=== PATIENT | female | born 1950 | race Caucasian/White ===

== ENCOUNTER 2019-06-27 07:11 | Inpatient (IN) | payer OTHER, BC ==
[2019-06-11 12:08] LABS: URINE BILIRUBIN NEGATIVE (Negative); URINE BLOOD 2+ (Negative); URINE CLARITY CLEAR; URINE COLOR YELLOW; URINE GLUCOSE-RANDOM* NEGATIVE (Negative); URINE KETONES NEGATIVE (Negative); URINE NITRITE-REFLEX NEGATIVE (Negative); URINE PROTEIN (DIPSTICK) NEGATIVE (Negative); URINE SPECIFIC GRAVITY 1.015 (1.005-1.035); URINE UROBILINOGEN 0.2 E.U./dl (0.2-1.0)
[2019-06-11 12:09] LABS: URINE LEUKOCYTES-REFLEX 1+ (Negative)
[2019-06-11 12:16] LABS: CASTS None Seen /LPF (None Seen); CRYSTALS None Seen /LPF (None Seen); MUCUS 0-3 Light strn/LPF (None Seen); SQUAMOUS >10 Many /LPF (0-3); URINE WBC-REFLEX 0-5 Rare /HPF (0-5)
[2019-06-11 12:17] LABS: BACTERIA-REFLEX 1-9 Few /HPF (None Seen); RENAL EPITHELIAL CELLS 0-3 Few /LPF (None Seen); TRANSITIONAL EPITHEL CELL 0-3 Few /LPF (None Seen)
[2019-06-11 12:48] LABS: HEMATOCRIT 40.8 % (37.0-47.0); HEMOGLOBIN 13.4 gm/dL (12.0-15.0); MCH 29.2 pg (26.0-34.0); MCHC 32.9 g/dL (28.0-37.0); MCV 88.8 fL (80.0-100.0); RBC 4.59 mil/uL (4.20-5.00); RDW 13.5 % (10.5-14.5); WBC 6.3 thou/uL (4.0-11.0)
[2019-06-11 12:57] LABS: CALCIUM 10.5 mg/dL (8.5-10.1); CREATININE 0.8 mg/dL (0.6-1.0); POTASSIUM 3.9 mmol/L (3.5-5.1)
[2019-06-11 13:04] LABS: PROTIME 10.3 Seconds (9.3-11.4)
--- NOTE | 2019-06-11 16:47 | EKG ---
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 : 1950 Requested By: Tawanda Montes Order Number: [id number] MD: William Oliveros Measurements Intervals [place] Rate: 70 P: 11 AK: 148 QRS: 53 QRSD: 106 T: 25 QT: 412 QTc: 445 Interpretive Statements Sinus rhythm Abnormal R-wave progression, early transition Baseline wander in lead(s) V5 No previous ECG available for comparison Electronically Signed On 06-11-2019 16:47:24 MARBLE HELPER by William Oliveros [email or web address] <ELECTRONICALLY SIGNED> By: William Oliveros MD, [facility] 06/11/19 1647 1220 1220 William Oliveros MD, FACC /EPI
[~2019-06-27] VITALS: Ht 152.4 cm; Wt 87.5 kg
[~2019-06-27 07:11] MED LIST: FOSAMAX 70 MG T70 MG PO; IRON325 M1 PO; MELOXICAM15 MG PO; NEURONTIN300 MG PO; OMEPRAZOLE 20 M20 M1 PO; SIMVASTATIN80 MG PO; TYLENOL EXTRA500 MG PO; ZESTORETIC 20-1 EAC3 PO; [UNRECOGNIZED DRUG - OTHER] PO
[2019-06-27 08:06] VITALS: BP 133/63
--- NOTE | 2019-06-27 18:05 | NUR ---
[age] YEAR OLD FEMALE ADMITTED TO [address] [place] [address] ROOM 445. PT ADMITTED FOR RIGHT TOTAL SHOULDER. PT ALERT AND ORIENTED TIMES FOUR. VSS, 97%RA. RIGHT ARM BRACE IN PLACE. PT DENIES PAIN/SOA AT THIS TIME. PT TOLERATES DINNER. PT UP TO BSC WITH ASSIST ONE. PT FAMILY AT BEDSIDE DURING ADMISSION ASSESSMENT.
[2019-06-27 19:26] VITALS: BP 113/76
[2019-06-28 04:28] VITALS: BP 131/84
--- NOTE | 2019-06-28 04:46 | NUR ---
ASSUMED CARE OF PT @1900 PT ASSESSED AT START OF SHIFT DENIES PAIN THIS SHIFT. UP WITH ASSISTX1 TO BR. RT SHOULDER DRESSING INTACT AND BRACE IN PLACE. 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 FALL PREC IN PLACE AND CALL LIGHT WITHIN REACH WILL CONT WITH POC TILL EOS.
[2019-06-28 06:12] LABS: BASOPHILS 0.1 % (0.0-2.0); HEMATOCRIT 38.2 % (37.0-47.0); HEMOGLOBIN 12.7 gm/dL (12.0-15.0); LYMPHOCYTES 15.6 % (24.0-44.0); MCH 29.3 pg (26.0-34.0); MCHC 33.2 g/dL (28.0-37.0); MCV 88.3 fL (80.0-100.0); MONOCYTES 7.8 % (1.0-8.0); PLATELET COUNT 330 thou/uL (150-400); POLYS 76.5 % (36.0-66.0); RBC 4.33 mil/uL (4.20-5.00); RDW 13.1 % (10.5-14.5); WBC 11.8 thou/uL (4.0-11.0)
[2019-06-28 06:34] LABS: CREATININE 0.9 mg/dL (0.6-1.0); MAGNESIUM 1.7 mg/dL (1.8-2.4); POTASSIUM 3.7 mmol/L (3.5-5.1)
[2019-06-28 07:45] VITALS: BP 109/57
--- NOTE | 2019-06-28 12:20 | NUR ---
ASSESSMENT-PT LIVES AT HOME WITH HER . PRIOR TO ADMISSION PT WAS INDEPENDENT OF ADLS AND AMBULATION. BOTH DRIVE. PT SAYS SHE IS TO SEE ORTH ON Jun THEN THEY WILL LET HER KNOW WHEN SHE CAN START THERAPY. PT SAYS SPOUSE IS ABLE TO ASSIST AT HOME. PT VOICES NO DC NEEDS AT THIS TIME. FOLLOWING.
[2019-06-28 13:40] VITALS: BP 109/57
--- NOTE | 2019-06-28 20:39 | NUR ---
ASSUMED CARE OF PT AT APPROX 0700. TREATED PAIN WITH PRN PAIN MEDICATION. ASSESSMENT CHARTED. DENIES SOA. EVEN NON LABORED BREATHING. COMPLETED DC. PT DISCHARGED TO HOME WITH HOME HEALTH SCRIPT SENT WITH PT. DC INSTRUCTIONS REVIEWED. PT LEFT WITH AND FAMILY.
[2019-07-02 19:09] LABS: M-SPIKE Not Observed g/dL (Not Observed)
--- NOTE | 2019-07-04 15:34 | O ---
[facility] [place] [address] [address] [place] [address] OPERATIVE REPORT Name: NOLVIA TATE Room #: 445-P [facility] IN M.R.#: [id number] Admission: 06/27/19 Attend Phys: Tawanda Vera Discharge: 06/28/19 Date of : 48 Report #: [id number] THIS REPORT FOR: //name// CC: Tawanda COBB [facility] Physician staff DATE OF SERVICE: 06/27/2019 PREOPERATIVE DIAGNOSES: Right shoulder pain, rotator cuff tear, arthropathy/avascular necrosis. POSTOPERATIVE DIAGNOSES: Right shoulder pain, rotator cuff tear, arthropathy/avascular necrosis with long head of the biceps tendon tear. PROCEDURE PERFORMED: Right reverse total shoulder arthroplasty. SURGEON: Tawanda Montes MD APPLICATIONS SYSTEM ANALYST: Melania White PA-C. ANESTHESIA: General with preoperative ultrasound-guided interscalene block. FLUIDS: 1400 mL crystalloid. ESTIMATED BLOOD LOSS: 100 mL. IMPLANTS UTILIZED: [employer] Unite Delta Xtend size 10 stem with a +1 epiphysis, 38 eccentric, +2 glenosphere, standard metaglene, +3 polyethylene. DESCRIPTION OF PROCEDURE: After proper identification of the patient, the operative site in preoperative holding area, the operative site was signed by myself. Prophylactic antibiotics were given. The patient elected to receive an interscalene block after reviewing the risks, benefits, alternatives and potential complications with anesthesia. After a satisfactory block, she was brought back to the operative suite. After induction of satisfactory general anesthesia, she was carefully positioned in the beach chair with head of bed elevated approximately 40 degrees. Right shoulder was sterilely prepped and draped in the usual manner and placed in a [employer] spider limb positioning system. Final skin draping was with Ioban. Anterior deltopectoral approach was planned. Skin was incised sharply. Full-thickness skin flaps were developed. Deltopectoral interval was identified. Cephalic vein was identified and retracted laterally. A very thickened subdeltoid bursa was noted. A portion of the bursa was excised for visualization purposes. There was evidence of a massive rotator cuff tear. A portion of the subscapularis was intact inferiorly. This was released. There were no remnants of the long head of the [facility] [address] [place] [address] OPERATIVE REPORT Name: NOLVIA TATE Room #: 445-P DIS IN M.R.#: [id number] Admission: 06/27/19 Attend Phys: Tawanda Vera Discharge: 06/28/19 Date of : 48 Report #: [id number] biceps tendon. Complete tears of the supraspinatus and infraspinatus were noted, flattened humeral head consistent with advanced osteoarthritis of possible avascular necrosis was noted. At this point, the cutting jig was utilized to perform the humeral head osteotomy anteriorly. The head was flattened with the saw, it was reamed by hand up to a size 10. The canal, which matched the preoperative templating, intramedullary cutting jig was assembled and secured with half pins. The osteotomy was performed in approximately 20 degrees of retroversion. Peripheral osteophytes were removed. Protection plate was applied. At this point, the remaining anterior capsule was removed off the subscapularis and excised. Lamina supervisor detasseling crew was used to distract the joint and the labrum was excised circumferentially. Inferior capsule was carefully released off the glenoid. Great care was taken to identify and protect the axillary nerve throughout the entire procedure. A guidepin was inserted into the glenoid. Its position was verified. This was then reamed to accommodate a standard metaglene. Step drill was utilized and any excess soft tissue was removed. Joint was irrigated with antibiotic irrigant. The central peg was contained and the metaglene was impacted into position and had excellent fixation. Superior and inferior locking screws were inserted measuring 30 and 36 mm and then two 18 mm screws were placed in the anterior and posterior slots. Screws were sequentially tightened and the superior and inferior screws were locked. At this point, an acetabular reamer was utilized to ream the metaphysis of the proximal humerus. A +2 38 eccentric glenosphere was then placed into the metaglene. Guidewire was inserted with the eccentricity was placed inferior, the screw was rotated counterclockwise until a click was noted. The glenosphere was felt to be fully seated. This was then impacted and tightened three additional times until it was felt to be fully seated. Next, a size 10 humeral stem with size 1 epiphysis was assembled, a +3 polyethylene provided excellent soft tissue tension as well as excellent stability of the glenohumeral joint. Trial implants were removed. A drill hole was placed in the anterior cortex of the humerus where #2 FiberWire was passed for repair of the more inferior subscapularis. Stem was assembled on the back table. The joint was thoroughly irrigated with antibiotic irrigant. The stem was then carefully inserted, impacted into position, felt to be stable. Trial polyethylene was utilized and then a +3 polyethylene was impacted. It was stable. Joint was reduced, had excellent stability and range of motion. Subscapularis was repaired with modified Khai-Nils suture. The joint was irrigated again. Then, 1 gram vancomycin powder was utilized, half of it deep, half at more superficial. 0 Vicryl, 2-0 Vicryl and a running 4-0 Monocryl were utilized to close the soft tissues. This was sealed with Dermabond and an Aquacel dressing. She was placed in a sling and abduction pillow for 4 weeks postoperatively. No external rotation beyond neutral for the first 4 weeks. Qualified first officer and flight instructor utilized throughout the entire procedure to aid in [facility] [address] [place] [address] OPERATIVE REPORT Name: NOLVIA TATE Room #: 445-P DIS IN MNirmal.#: [id number] Admission: 06/27/19 Attend Phys: Tawanda Vera Discharge: 06/28/19 Date of : 48 Report #: [id number] patient limb positioning, visualization, retraction of soft tissues, instrument passage, closure and sling and dressing application. <ELECTRONICALLY SIGNED> By: Tawanda Montes MD 07/04/19 1534 1144 1241 Tawanda Montes MD /nt
== END 2019-06-28 18:15 | disposition home health service (06) | DRG 483 ==
LOC: 4S 07:11 → TBA 07:11 → PRE 08:10 → 4S 15:27 → TBA 15:54 → 4S 06-28 18:15 → ENTRNSPT 06-28 18:40
PROVIDERS: Hospitalist; Physician Assistant Surgical; ADMIT Orthopaedic Surgery Sports Medicine
PROC: 0RRJ00Z Replacement of Right Shoulder Joint with Reverse Ball and Socket Synthetic Substitute, Open Approach (ICD-10-PCS; principal; 2019-06-27)
DX: M75.101 Unspecified rotator cuff tear or rupture of right shoulder, not specified as traumatic (principal); M87.011 Idiopathic aseptic necrosis of right shoulder; S46.111A Strain of muscle, fascia and tendon of long head of biceps, right arm, initial encounter; I10 Essential (primary) hypertension; N19 Unspecified kidney failure; E78.5 Hyperlipidemia, unspecified; K21.9 Gastro-esophageal reflux disease without esophagitis; M19.011 Primary osteoarthritis, right shoulder; G89.29 Other chronic pain; E78.00 Pure hypercholesterolemia, unspecified; M81.0 Age-related osteoporosis without current pathological fracture; Z88.6 Allergy status to analgesic agent; Z88.2 Allergy status to sulfonamides; Z87.442 Personal history of urinary calculi; Z90.710 Acquired absence of both cervix and uterus; X58.XXXA Exposure to other specified factors, initial encounter; Y93.89 Activity, other specified; Y92.89 Other specified places as the place of occurrence of the external cause; Y99.8 Other external cause status
CPT/HCPCS: 10102; 50010; 50101; 50172; 50386; 50417; 50697; 50733; 50935; 51320; 51751; 52001; 52138; 52256; 53000; 53078; 54118; 55430; 56524; 56525; 56526; 56530; 57095; 57103; 62110; 62900; 65060; 70005